=== PATIENT | male | born 1995 | race Caucasian/White ===

== ENCOUNTER 2025-07-26 17:07 | Inpatient (IN) | payer SELFPAY ==
[~2025-07-26] VITALS: Ht 167.6 cm; Wt 84.4 kg
[2025-07-26] MEDS: IV NS 0.9% 1,000 ML BAG IV ONE (17:30)
[2025-07-26 17:36] LABS: PLATELET COUNT (AUTO) 296 K/uL (150-450); RED BLOOD CELL COUNT(AUTO) 4.96 MIL/uL (4.5-6.0); RED CELL DISTRIBUTION WIDTH 12.7 % (11.5-15.0); WHITE BLOOD COUNT (AUTO) 10.4 K/uL (4.3-11.0)
[2025-07-26] MEDS ORDERED: ACETAMINOPHEN ES 500 MG TABLET ONE (17:37)
[2025-07-26] MEDS ORDERED: IBUPROFEN 400 MG TABLET ONE (17:37)
[2025-07-26] MEDS: IBUPROFEN 400 MG TABLET PO ONE (17:40)
[2025-07-26] MEDS: ACETAMINOPHEN ES 500 MG TABLET PO ONE (17:40)
[2025-07-26 17:45] LABS: CALCIUM, SERUM 8.6 mg/dL (8.5-10.1); CREATININE 1.2 mg/dL (0.6-1.3); SODIUM SERUM 135 mmol/L (136-145); UREA NITROGEN, BLOOD 12 mg/dL (7-18)
[2025-07-26 17:49] LABS: INR 0.96 (0.91-1.10)
[2025-07-26 17:55] LABS: LACTIC ACID 2.5 mmol/L (0.4-2.0)
[2025-07-26 18:00] LABS: ASPARTATE AMINOTRANSFERASE 18 U/L (15-37); TOTAL PROTEIN, SERUM 8.5 g/dL (6.4-8.2)
[2025-07-26 18:11] LABS: APPEARANCE,URINE CLEAR (CLEAR); BLOOD, URINE Trace-intact Ery/uL (NEGATIVE); LEUKOCYTE ESTERASE ,URINE Negative (NEGATIVE); NITRITE, URINE NEGATIVE (NEGATIVE); UGLUCOSE Negative (NEGATIVE)
[2025-07-26 18:12] LABS: ADD URINE CULTURE NO; SQUAMOUS EPITHELIAL CELL,UR None Seen /HPF (None Seen)
[2025-07-26] MEDS ORDERED: POTASSIUM CHLORIDE 20 MEQ TAB.PRT.SR PO ONE (18:12)
[2025-07-26] MEDS: POTASSIUM CHLORIDE 20 MEQ TAB.PRT.SR PO ONE (18:13)
[2025-07-26 18:16] LABS: AMPHETAMINE, URINE NEGATIVE (NEGATIVE); BARBITURATE, URINE NEGATIVE (NEGATIVE); BENZODIAZEPINE, URINE NEGATIVE (NEGATIVE); CANNABINOID, URINE NEGATIVE (NEGATIVE); COCCAINE, URINE NEGATIVE (NEGATIVE); OPIATE, URINE NEGATIVE (NEGATIVE)
[2025-07-26 18:26] LABS: ALCOHOL, BLOOD 32.0 mg/dL (0-10)
[2025-07-26] MEDS ORDERED: PIPERACI/TAZO 3.375GM/D5W 50ML PB IV ONE (19:22)
[2025-07-26] MEDS: PIPERACILLIN /TAZOBACTAM 3.375 G in IV D5W 50 ML IV ONE (19:25)
[2025-07-26 20:30] VITALS: BP 125/87; TEMP 98.9; O2SAT 98
[2025-07-26] MEDS ORDERED: MAG HYDROX/AL HYDROX/SIMETH 30 ML UDC PO PRN (21:00)
[2025-07-26] MEDS ORDERED: ACETAMINOPHEN 325 MG TABLET PO PRN (21:00)
[2025-07-26] MEDS ORDERED: MAGNESIUM HYDROXIDE 30 ML UDC PO PRN (21:00)
[2025-07-26] MEDS ORDERED: IV NS 0.9% 1,000 ML IV PRN (21:00)
[2025-07-26] MEDS ORDERED: ONDANSETRON HCL/PF 4 MG/2 ML VIAL IVP PRN (21:00)
[2025-07-27] MEDS ORDERED: PANTOPRAZOLE 40 MG TABLET.DR PO SCH (07:30)
== END 2025-07-26 21:40 | disposition left against medical advice (07) | DRG 918 ==
LOC: ER 17:15 → TELE1 20:52
PROVIDERS: ADMIT Nurse Practitioner Family; ATTEND Nurse Practitioner Family
DX: T43.621A Poisoning by amphetamines, accidental (unintentional), initial encounter (principal); E87.20 Acidosis, unspecified; F15.10 Other stimulant abuse, uncomplicated; E66.9 Obesity, unspecified; E87.1 Hypo-osmolality and hyponatremia; E86.0 Dehydration; Y92.9 Unspecified place or not applicable; F41.9 Anxiety disorder, unspecified; R00.2 Palpitations; R94.6 Abnormal results of thyroid function studies; E87.6 Hypokalemia; Z68.30 Body mass index [BMI] 30.0-30.9, adult; Z53.29 Procedure and treatment not carried out because of patient's decision for other reasons
CPT/HCPCS: 36415; 71045-TC; 80048-TC; 80076-TC; 81001; 83605-TC; 84443-TC; 85025-TC; 85730-TC; 87040-TC; 87086-TC; G0378; G0480; J2543; J7030; J7040; J7060